=== PATIENT | male | born 1980 | race Two or more races ===

== ENCOUNTER 2020-03-07 19:53 | Emergency (ER) | payer BC, OTHER ==
[~2020-03-07] VITALS: Ht 157.5 cm; Wt 77.1 kg
[2020-03-07 23:06] VITALS: BP 105/65
[2020-03-07] MEDS ORDERED: HYDROcodone-ACET 10/325MG TAB PO ONE (23:30)
== END 2020-03-08 00:02 | disposition home or self-care (01) ==
LOC: EDBD 19:53 → ER 19:53
DX: S49.92XA Unspecified injury of left shoulder and upper arm, initial encounter (principal); V29.9XXA Motorcycle rider (driver) (passenger) injured in unspecified traffic accident, initial encounter; Y93.89 Activity, other specified; Y92.89 Other specified places as the place of occurrence of the external cause; Y99.8 Other external cause status
CPT/HCPCS: 73030